=== PATIENT | female | born 1990 | race Caucasian/White ===

== ENCOUNTER 2016-08-01 05:13 | Inpatient (IN) | payer BC, MEDICAID ==
[2016-08-01] MEDS: Sodium Chloride 0.9% 10 ML Syringe FLUSH PRN ×2 (05:35→07:10)
[2016-08-01] MEDS ORDERED: Lactated Ringers 1,000 ML IV ONE (06:00)
[2016-08-01] MEDS ORDERED: Lidocaine 1% 20 ML MDV INJECT ONE (06:10)
[2016-08-01] MEDS ORDERED: Ampicillin 1 GM in Sodium Chloride 0.9% 50 ML IV ONE (06:10)
[2016-08-01] MEDS ORDERED: Oxytocin 10 Units/1 ML SDV IV ONE (06:24)
[2016-08-01] MEDS ORDERED: Ibuprofen 600 MG Tab PO PRN (07:38)
--- NOTE | 2016-08-01 09:11 | DEL ---
DATE OF DELIVERY: 08/01/2016 ATTENDING PHYSICIAN: Garcia Paredes MD ADMISSION AND DELIVERY NOTE. HISTORY: This 26-year-old, 3, para 2 female was admitted with contractions that began at approximately 2100 hours last night. She had been having them throughout the night, becoming progressively more intense and frequent. When she arrived, she was found to be completely dilated and requesting to push. Her apparently had been totally uncomplicated without proteinuria, glucosuria, or hypertension. Her blood type was O positive. Mary negative, but her group B strep screen was positive. No other abnormalities were noted. PAST MEDICAL HISTORY: Unremarkable, except for 2 previous vaginal deliveries. DELIVERY SUMMARY: When I arrived, she was panting and requesting to push, quite uncomfortable. Her vitals were within normal limits. Her chest was clear. The cardiovascular exam was unremarkable. The abdomen was gravid. Pelvic exam did in fact, revealed a bulging bag of paul and vertex presentation. She was at approximately minus 2 station. Extremities were without clubbing or edema. Saline lock had been established, and I requested a gram of Ancef be given IV push, as IV fluids were initiated at 100 mL per hour. The table was broken and set up and after the ampicillin was in, amniotomy was accomplished with clear fluid. She began pushing and after approximately 15-20 minutes of pushing, brought the baby down in VIDAL position to the perineum. The baby then rotated to an OA position, and I anesthetized the perineal body with approximately 4 mL of 1% Xylocaine. Episiotomy was not done, however. With the next push under good control, the infant's head was delivered without difficulties. The nasopharynx was suctioned free of amniotic fluid and blood. There was no nuchal cord. The baby rotated to LOT presentation. The right anterior, followed by the left posterior shoulder were delivered without difficulty as was the remainder of the infant. The nasopharynx was again suctioned free of amniotic fluid and blood. The cord was doubly clamped, and dad was allowed to cut the cord between clamps. The baby was then handed off mom's abdomen with the nurse in attendance. scores were 9 and 9. weight was 6 pounds 15 ounces, and it was a female . Attention was returned to the mother. Cord blood was obtained, and with approximately 3 to 4 minutes of uterine massage, the placenta delivered in a Schultze presentation. It appeared to be intact with vessels present x3 in the cord. Uterine massage was initiated, and bleeding was well controlled. 10 units of Pitocin was placed in the IV bag and was run at 999 mL/h. This gave us excellent hemostasis. Inspection of the perineal body revealed just a superficial abrasion in the midline, more so on the vaginal side, but it was not actively bleeding. She also has 2 other superficial abrasions in the labia minora, one on the right and one on the left. Again, no active bleeding was noted. There are no vaginal lacerations and no cervical lacerations. All drapes were removed. The perineum was washed with Betadine, and the bed pads were replaced. She was taken out of stirrups and allowed to rest. Estimated blood loss was approximately 200 mL. All instruments and sponges were accounted for. No needles were used other than for the anesthesia, and this was accounted for. She remained in the birthing room in good condition with stable vitals. /[id number] /CONRAD LEMONS
--- NOTE | 2016-08-02 08:16 | DISCH ---
DISCHARGE DATE: 08/02/2016 HISTORY: Sonia eMier is a 26-year-old 3, para 3 female, 1 day . Up, ambulating, doing well. Lochia and flow are moderated. Anxious to be going home. Hemoglobin 13.2, hematocrit 39.4. PHYSICAL EXAMINATION: U-2 tone satisfactory, perineum intact. ASSESSMENT: day 2. No problems. Ready for discharge. PLAN: Discharge home with lengthy instructions, including maternal and baby care, complementary care, and well being, six-week followup. /[id number] RAFIQ/CONRAD
[2016-08-02 09:20] VITALS: BP 139/80
== END 2016-08-02 08:58 | disposition home or self-care (01) | DRG 775 ==
LOC: FB.OBCHECK 05:13 → FB.OB 05:14 → UNDOADMIN 05:14 → FB.OB 05:15 → UNDOADMIN 05:34 → FB.OB 05:34 → UNDODISIN 08-02 08:58
PROVIDERS: ADMIT Family Medicine; ATTEND Family Medicine
PROC: 10E0XZZ Delivery of Products of Conception, External Approach (ICD-10-PCS; principal; 2016-08-01)
PROC: 10907ZC Drainage of Amniotic Fluid, Therapeutic from Products of Conception, Via Natural or Artificial Opening (ICD-10-PCS; 2016-08-01)
DX: O99.824 Streptococcus B carrier state complicating childbirth (principal); Z3A.39 39 weeks gestation of pregnancy; Z37.0 Single live birth
CPT/HCPCS: 36415; 85014; 85018; A4217; A9270-GY; J0290; J2590; J7050; J7120

== ENCOUNTER 2016-09-09 10:45 | Emergency (ER) | payer BC, MEDICAID ==
[2016-09-09] MEDS ORDERED: Sodium Chloride 0.9% 1,000 ML IV ONE (11:51)
--- NOTE | 2016-09-09 13:33 | CR ---
INDICATION: End inspiration pleuritic pain, right anterior chest. 5 weeks . CHEST: PA and lateral views of the chest were obtained 09/09/2016 and were compared with 12/17/2008. A minimal dextroconcave scoliosis of the lower thoracic spine is noted. Heart, mediastinum, and bony thorax were otherwise unremarkable. No consolidating pneumonia or effusion could be identified. Slightly prominent markings at the lung bases are unchanged from the previous study. IMPRESSION: No significant active disease - minimal scoliosis. MTDD
--- NOTE | 2016-09-09 13:55 | US ---
INDICATION: Right upper quadrant pain, 6 weeks. RIGHT UPPER QUADRANT/GALLBLADDER ULTRASOUND: Multiple ultrasonic images were obtained, revealing absence of the gallbladder, compatible with history of its removal. The common bile duct was normal in caliber for post cholecystectomy patient at 8.4 mm. The abdominal aorta was normal in caliber. The liver had a normal appearance, as did the right kidney. The IVC was phasic. The pancreas was unremarkable. The spleen and left kidney had a normal appearance additionally. The spleen measured 12.6 x 6.2 x 9 cm. The right kidney measured 10.2 x 5.2 x 4.8 cm. The left kidney measured 11.0 x 4.1 x 5.1 cm. IMPRESSION: Normal appearing abdomen ultrasound, post cholecystectomy. No finding identified to suggest an etiology for right upper quadrant abdominal pain. Report was called to Dr. Baker at 1324 hours, 09/09/2016. CRISTO
[2016-09-09] MEDS ORDERED: Iopamidol 755 Mg/ML 75 ML Bottle IV ONE (14:38)
[2016-09-09 15:36] VITALS: BP 111/60
--- NOTE | 2016-09-12 16:30 | ER ---
DATE SEEN: 09/09/2016 TIME SEEN: The patient was seen at 1113 hours. CHIEF COMPLAINT: Abdominal pain. HISTORY OF PRESENT ILLNESS: This 26-year-old, 3, para 3 woman who is 5 weeks and is breast-feeding currently, presents with onset of right upper quadrant abdominal discomfort, 8/10 in intensity, onset midnight 0005 hours today, 09/09/2016. She has had mild dyspnea on exertion, right chest soreness, and inspiratory chest wall pain. Smokes half a pack per day. Smoking less now as she is breast-feeding. She had stopped during the and now restarted smoking. Status post previous cholecystectomy. Last night at 2230 hours, she had pizza-did not particularly feel like she had increased abdominal discomfort- and two swallows of water. She notes when she is lying down, the pain is less; when she sits up or lies on her stomach, she has more pain. She denies vomiting, diarrhea, or constipation, but has had mild nausea associated with this pain. Denies back pain, arm pain, jaw pain, neck pain. No diaphoresis. No heart pain or palpitations, but she has right-sided chest discomfort. She denies recent fever, chills, or pain in her legs. She has not traveled long distance. No history of DVTs or PE. ALLERGIES: Sulfa and Ritalin. CURRENT MEDICATION: vitamins. REVIEW OF SYSTEMS: Negative except as noted in the HPI. She denies excessive lochia, but still has mild blood in her urine and lochia. She denies foul odor or abdominal cramping. Denies pedal edema in her lower extremities or change in muscle strength, weakness, or arthritis. No fever or chills. PHYSICAL EXAMINATION: VITAL SIGNS: Heart rate 78 and regular, respirations 17, oxygen saturation 98%, blood pressure 131/83, temperature 36.7 degrees centigrade. GENERAL: The patient is in mild discomfort. She looks tired. She has slight flush in her face. PERRLA intact. Pharynx without abnormality. NECK: Supple. No thyromegaly or masses in neck. LUNGS: Clear to auscultation without rales, rhonchi, or wheezes. HEART: S1, S2. No irregular rate and rhythm. Chest wall has mild tenderness at ribs 9, 10, 11; anterior axillary line; mid clavicular line; and mild sternal chondral discomfort. ABDOMEN: Mild right upper quadrant abdominal discomfort. No masses palpable. No Rovsing sign. No guarding in right lower quadrant. No rebound. No heel jar rebound. PELVIC: Not performed. LABORATORY FINDINGS: White count 7200, PMNs 71, lymphs 19, monos 7, eosinophils 3, platelets 220,000 and hemoglobin 12.7. Automated chemistry, low potassium at 3.2, sodium 139, chloride 109, bicarb 23, BUN 4, creatinine 0.6. BUN and creatinine ratio of 6.7. Lactic acid 0.6, calcium 8.3. Urinalysis, large LEs, greater than 100 wbc's, greater than 5-10 rbc's, many bacteria, and Trichomonas noted. Because of the patient's right upper quadrant abdominal discomfort, an ultrasound was performed. No evidence for gallbladder or hepatic ducts abnormality noted. Because she had elevated D-dimer of 1620 (four times normal), I discussed her status with OB, Dr. Camara at [facility] and she said it is definitely abnormal, D-dimer should be down by this time. She did not think the D-dimer elevation was secondary to breast-feeding. Consequently, a PE run was performed and no PE demonstrated. ASSESSMENT: The patient's pain is secondary to musculoskeletal chest wall pain. (I learned later in the visit that she just started work 1 to 2 days ago and she has worked 2 to 3 days in a row. 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 The right chest pain which also radiates to right upper quadrant, is accompanied by symptoms of right chest musculoskeletal strain and mild costochondritis, subchondritis, and mild sternal chondritis from cluneal nerve irritation . The patient is right-handed, so it may have increased her right chest wall stresses. PLAN: Use Tylenol or ibuprofen. The patient is to follow up with her doctor as needed. The patient is reassured. No evidence for pulmonary embolus, other serious illness, pneumonia, infectious process, atelectasis, pleuritis, or pulmonary embolus. /[id number] NAT/CONRAD LEMONS
--- NOTE | 2016-09-12 16:40 | ER ---
DATE SEEN: 09/09/2016 The patient has Trichomonas vaginalis. An attempt was made to call the patient. The patient's contract for minutes is used up. Consequently, I had spoken to her mother. Mother communicated to her that prescription has been phoned in and could be picked up in the a.m. If Sonia has any questions, she should call me in the morning. Mother will be seeing Sonia in the morning Flagyl 250 mg t.i.d. for 7 days per up-to-date recommendation. The patient is breast-feeding. The child will receive some of the Flagyl, but Flagyl does not cause complications or a RID (relative dose) over 10% at this dose. DIAGNOSIS: Trichomonas vaginitis. /[id number] NAT/CONRAD LEMONS
== END 2016-09-09 16:05 | disposition home or self-care (01) ==
LOC: FB.ED 10:45
DX: O90.89 Other complications of the puerperium, not elsewhere classified (principal); R10.11 Right upper quadrant pain; R07.89 Other chest pain; A59.01 Trichomonal vulvovaginitis; Z90.49 Acquired absence of other specified parts of digestive tract; Z88.2 Allergy status to sulfonamides; Z88.8 Allergy status to other drugs, medicaments and biological substances
CPT/HCPCS: 36415; 71020; 71275; 76700; 80053; 81001; 81025; 83605; 85025; 85379; 87086; 96365; 99284; J7040; Q9967

== ENCOUNTER 2020-11-04 15:33 | Emergency (ER) | payer MEDICAID ==
[2020-11-04] MEDS ORDERED: Sodium Chloride 0.9% 10 ML Syringe FLUSH PRN (15:37)
[2020-11-04] MEDS ORDERED: Acetaminophen/HYDROcodone 325-5 MG Tab PO STA (15:47)
[2020-11-04] MEDS ORDERED: Sodium Chloride 0.9% 1,000 ML IV SCH (16:00)
[2020-11-04] MEDS ORDERED: Cephalexin 500 MG Cap PO STA (17:35)
[2020-11-04] MEDS ORDERED: Potassium Chloride 20 MEQ Tab.ER PO STA (17:35)
--- NOTE | 2020-11-04 17:52 | EDM.PDOC ---
ED HPI GENERAL MEDICAL PROBLEM - General Stated Complaint: LEFT ABDOMINAL PAIN 20 WEEKS PREG Time Seen by Provider: 11/04/20 15:35 Source of Information: Reports: Patient History Limitations: Reports: No Limitations - History of Present Illness INITIAL COMMENTS - FREE TEXT/NARRATIVE: Patient is a 30 YO at approximately 19-20 weeks AOG presented to the ED because of on and off diarrhea for 2 weeks and LLQ pain which started yeterday. She took Tylenol without any relief. There is no fever, chills, nausea, vomiting. 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: Psychiatric History: Reports: Anxiety, Depression - Infectious Disease History Infectious Disease History: Reports: Chicken Pox - Past Surgical History HEENT Surgical History: Reports: Tonsillectomy GI Surgical History: Reports: Cholecystectomy Social & Family History - Family History Family Medical History: No Pertinent Family History - Caffeine Use Caffeine Use: Reports: Soda Other Caffeine Use: 3 CANS/DAY Caffeine Use Comment: 3 cans per day ED ROS GENERAL - Review of Systems Review Of Systems: See Below Constitutional: Reports: No Symptoms HEENT: Reports: No Symptoms Respiratory: Reports: No Symptoms Cardiovascular: Reports: No Symptoms Endocrine: Reports: No Symptoms GI/Abdominal: Reports: Abdominal Pain, Diarrhea : Reports: No Symptoms Musculoskeletal: Reports: No Symptoms Skin: Reports: No Symptoms Neurological: Reports: No Symptoms Psychiatric: Reports: No Symptoms ED EXAM, GI/ABD - Physical Exam Exam: See Below Exam Limited By: No Limitations General Appearance: Alert, No Apparent Distress Ears: Normal External Exam, Normal Canal Nose: Normal Inspection, Normal Mucosa, No Blood Throat/Mouth: Normal Inspection, Normal Lips, Normal Teeth, Normal Gums Head: Atraumatic, Normocephalic Neck: Normal Inspection, Supple, Non-Tender, Full Range of Motion Respiratory/Chest: No Respiratory Distress, Lungs Clear, Normal Breath Sounds, No Accessory Muscle Use, Chest Non-Tender Cardiovascular: Normal Peripheral Pulses, Regular Rate, Rhythm, No Edema, No Gallop, No JVD, No Murmur, No Rub GI/Abdominal Exam: Normal Bowel Sounds, Soft, Other (hyperactive BS, LLQ tenderness) Back Exam: Normal Inspection, Full Range of Motion Extremities: Normal Inspection, Normal Range of Motion, Non-Tender Neurological: Alert, Oriented, CN II-XII Intact, Normal Cognition Course - Vital Signs Text/Narrative:: Lab result was reviewed and discussed with patient and her spouse NS 1 L bolus Rincon 5 mg PO x1 Klor con 40 meq PO x1 Case was discussed with her OB DR Islas who agreed with the plan to d/c her home with keflex, oral hydration and imodium PRN. Last Recorded V/S: Last Vital Signs Temp 36.4 C 11/04/20 15:33 Pulse 68 11/04/20 15:33 Resp 18 11/04/20 15:33 BP 122/66 11/04/20 15:33 Pulse Ox - Orders/Labs/Meds Orders: Active Orders 24 hr Category Date Time Status CULTURE URINE [RM] Stat Lab 11/04/20 17:34 Ordered Sodium Chloride 0.9% [Normal Saline] 1,000 ml Med 11/04/20 16:00 Active IV ASDIRECTED Sodium Chloride 0.9% [Saline Flush] Med 11/04/20 15:37 Active 10 ml FLUSH ASDIRECTED PRN Saline Lock Insert [OM.PC] Routine Oth 11/04/20 15:37 Ordered Medication Orders Sodium Chloride (Normal Saline) 1,000 mls @ 999 mls/hr IV ASDIRECTED WILSON Last Admin: 11/04/20 16:15 Dose: 999 mls/hr Documented by: MATIMAR Sodium Chloride (Sodium Chloride 0.9% 10 Ml Syringe) 10 ml FLUSH ASDIRECTED PRN PRN Reason: Keep Vein Open Labs: Laboratory Tests 11/04/20 11/04/20 11/04/20 Range/Units 16:00 16:00 16:00 WBC 7.0 (3.0-10.3) x10-3/uL RBC 4.57 (3.60-5.20) x10(6)uL Hgb 13.7 (11.4-15.5) g/dL Hct 39.9 (34.2-48.2) % MCV 87.3 (76.7-100.5) fL MCH 30.0 (23.9-33.9) pg MCHC 34.4 (31.9-34.8) g/dL RDW 13.3 (12.3-16.5) % Plt Count 208 (151-488) x10(3)uL MPV 8.0 (7.1-12.4) fL Neut % (Auto) 71.8 (30.8-76.2) % Lymph % (Auto) 20.1 (18.4-52.1) % [place] % (Auto) 4.7 (4.4-15.7) % Eos % (Auto) 2.7 (0.6-8.1) % Baso % (Auto) 0.7 (0.2-1.5) % Neut # (Auto) 5.0 (1.5-6.3) x10-3/uL Lymph # (Auto) 1.4 (1.0-4.4) x10-3/uL [place] # (Auto) 0.3 (0.3-1.0) x10-3/uL Eos # (Auto) 0.2 (0.0-0.8) x10-3/uL Baso # (Auto) 0.0 (0.0-0.1) x10-3/uL Sodium 138 (135-145) mmol/L Potassium 3.3 L (3.5-5.3) mmol/L Chloride 104 (100-110) mmol/L Carbon Dioxide 23 (21-32) mmol/L BUN 6 L (7-18) mg/dL Creatinine 0.7 (0.55-1.02) mg/dL Est Cr Clr Drug Dosing TNP Estimated GFR (MDRD) > 60 (>60) BUN/Creatinine Ratio 8.6 L (9-20) Glucose 104 (80-116) mg/dL Calcium 8.4 L (8.6-10.2) mg/dL Total Bilirubin 0.3 (0.1-1.3) mg/dL AST 30 H (5-25) IU/L ALT 44 H (12-36) U/L Alkaline Phosphatase 66 (56-112) IU/L Total Protein 7.2 (6.0-8.0) g/dL Albumin 2.8 L (3.5-5.2) g/dL Globulin 4.4 g/dL Albumin/Globulin Ratio 0.6 Amylase 43 (25-115) U/L Lipase 65 L (73-393) U/L Urine Color (YELLOW) Urine Appearance (CLEAR) Urine pH (5.0-6.5) Ur Specific Bison (1.010-1.025) Urine Protein (NEGATIVE) mg/dL Urine Glucose (UA) (NORMAL) mg/dL Urine Ketones (NEGATIVE) mg/dL Urine Occult Blood (NEGATIVE) Urine Nitrite (NEGATIVE) Urine Bilirubin (NEGATIVE) Urine Urobilinogen (NEGATIVE) mg/dL Ur Leukocyte Esterase (NEGATIVE) Urine RBC (0-5) Urine WBC (0-5) Ur Squamous Epith Cells (NS,R,O) Urine Bacteria (NS) 11/04/20 Range/Units 16:49 WBC (3.0-10.3) x10-3/uL RBC (3.60-5.20) x10(6)uL Hgb (11.4-15.5) g/dL Hct (34.2-48.2) % MCV (76.7-100.5) fL MCH (23.9-33.9) pg MCHC (31.9-34.8) g/dL RDW (12.3-16.5) % Plt Count (151-488) x10(3)uL MPV (7.1-12.4) fL Neut % (Auto) (30.8-76.2) % Lymph % (Auto) (18.4-52.1) % [place] % (Auto) (4.4-15.7) % Eos % (Auto) (0.6-8.1) % Baso % (Auto) (0.2-1.5) % Neut # (Auto) (1.5-6.3) x10-3/uL Lymph # (Auto) (1.0-4.4) x10-3/uL [place] # (Auto) (0.3-1.0) x10-3/uL Eos # (Auto) (0.0-0.8) x10-3/uL Baso # (Auto) (0.0-0.1) x10-3/uL Sodium (135-145) mmol/L Potassium (3.5-5.3) mmol/L Chloride (100-110) mmol/L Carbon Dioxide (21-32) mmol/L BUN (7-18) mg/dL Creatinine (0.55-1.02) mg/dL Est Cr Clr Drug Dosing Estimated GFR (MDRD) (>60) BUN/Creatinine Ratio (9-20) Glucose (80-116) mg/dL Calcium (8.6-10.2) mg/dL Total Bilirubin (0.1-1.3) mg/dL AST (5-25) IU/L ALT (12-36) U/L Alkaline Phosphatase (56-112) IU/L Total Protein (6.0-8.0) g/dL Albumin (3.5-5.2) g/dL Globulin g/dL Albumin/Globulin Ratio Amylase (25-115) U/L Lipase (73-393) U/L Urine Color Yellow (YELLOW) Urine Appearance Cloudy (CLEAR) Urine pH 6.0 (5.0-6.5) Ur Specific Bison 1.020 (1.010-1.025) Urine Protein Negative (NEGATIVE) mg/dL Urine Glucose (UA) Normal (NORMAL) mg/dL Urine Ketones Negative (NEGATIVE) mg/dL Urine Occult Blood Moderate H (NEGATIVE) Urine Nitrite Positive H (NEGATIVE) Urine Bilirubin Negative (NEGATIVE) Urine Urobilinogen Normal (NEGATIVE) mg/dL Ur Leukocyte Esterase Negative (NEGATIVE) Urine RBC 0-5 (0-5) Urine WBC 0-5 (0-5) Ur Squamous Epith Cells Moderate H (NS,R,O) Urine Bacteria Many H (NS) Meds: Medications Generic Name Dose Route Start Last Admin Trade Name Freq PRN Reason Stop Dose Admin Sodium Chloride 1,000 mls @ 999 mls/hr 11/04/20 16:00 11/04/20 16:15 Normal Saline IV 999 mls/hr ASDIRECTED WILSON Administration Sodium Chloride 10 ml 11/04/20 15:37 Sodium Chloride 0.9% 10 Ml Syringe FLUSH ASDIRECTED PRN Keep Vein Open Discontinued Medications Generic Name Dose Route Start Last Admin Trade Name Freq PRN Reason Stop Dose Admin Hydrocodone Bitart/Acetaminophen 1 tab 11/04/20 15:47 11/04/20 16:00 Acetaminophen/Hydrocodone 325-5 Mg Tab PO 11/04/20 15:48 1 tab NOW STA Administration Cephalexin 500 mg 11/04/20 17:35 11/04/20 17:50 Cephalexin 500 Mg Cap PO 11/04/20 17:36 500 mg NOW STA Administration Potassium Chloride 40 meq 11/04/20 17:35 11/04/20 17:50 Potassium Chloride 20 Meq Tab.Er PO 11/04/20 17:36 40 meq NOW STA Administration Departure - Departure Time of Disposition: 17:50 Disposition: Home, Self-Care 01 Condition: Good Clinical Impression: Gastroenteritis, UTI (urinary tract infection) - Discharge Information Prescriptions: cephALEXin [Keflex] 500 mg PO Q8H #21 cap Instructions: Viral Gastroenteritis, Adult, [id number], and Urinary Tract Infection Referrals: Kt Islas MD [Primary Care Provider] - Additional Instructions: Please read discharge instructions on gastroenteritis and UTI Frequent hand washing Tylenol 1000 mg every 8 hours as needed for pain Imodium 2 tablets every 6 hours as needed for diarrhea(over the counter) Keflex/Cephalexin 500 mg 3 times daily for 7 days Follow up with DR Islas as needed Sepsis Event Note (ED) - Evaluation Sepsis Screening Result: No Definite Risk - Focused Exam Vital Signs: Vital Signs Temp Pulse Resp BP 11/04/20 15:33 36.4 C 68 18 122/66 - My Orders Last 24 Hours: My Active Orders 11/04/20 15:37 Sodium Chloride 0.9% [Saline Flush] 10 ml FLUSH ASDIRECTED PRN Saline Lock Insert [OM.PC] Routine 11/04/20 16:00 Sodium Chloride 0.9% [Normal Saline] 1,000 ml IV ASDIRECTED 11/04/20 17:34 CULTURE URINE [RM] Stat - Assessment/Plan Last 24 Hours: My Active Orders 11/04/20 15:37 Sodium Chloride 0.9% [Saline Flush] 10 ml FLUSH ASDIRECTED PRN Saline Lock Insert [OM.PC] Routine 11/04/20 16:00 Sodium Chloride 0.9% [Normal Saline] 1,000 ml IV ASDIRECTED 11/04/20 17:34 CULTURE URINE [RM] Stat
[2020-11-04 20:16] VITALS: BP 122/76; PULSE 65
== END 2020-11-04 18:00 | disposition home or self-care (01) ==
LOC: FB.ED 15:33
DX: O23.42 Unspecified infection of urinary tract in pregnancy, second trimester (principal); O99.612 Diseases of the digestive system complicating pregnancy, second trimester; K52.9 Noninfective gastroenteritis and colitis, unspecified; Z88.8 Allergy status to other drugs, medicaments and biological substances; Z88.2 Allergy status to sulfonamides; Z90.49 Acquired absence of other specified parts of digestive tract; Z3A.20 20 weeks gestation of pregnancy
CPT/HCPCS: 36415; 80053; 81001; 82150; 83690; 85025; 87086; 87088; 87186; 99284; A9270-GY; J7030

== ENCOUNTER 2021-05-13 07:48 | Emergency (ER) | payer MEDICAID ==
[2021-05-13] MEDS ORDERED: Ketorolac 30 MG/ML SDV IM STA (08:09)
[2021-05-13 09:09] VITALS: BP 149/101; PULSE 70
== END 2021-05-13 09:15 | disposition home or self-care (01) ==
LOC: FB.ED 07:48
DX: N39.0 Urinary tract infection, site not specified (principal); Z88.8 Allergy status to other drugs, medicaments and biological substances; Z88.2 Allergy status to sulfonamides
CPT/HCPCS: 36415; 80048; 81001; 85025; 96372; 99284; J1885

== ENCOUNTER 2024-01-22 18:10 | Emergency (ER) | payer MEDICAID ==
[2024-01-22 18:48] VITALS: BP 135/92; PULSE 65
[2024-01-22] MEDS: Ketorolac 30 MG/ML SDV IM ONE (19:19)
[2024-01-22] MEDS: Cephalexin 500 MG Cap PO ONE (19:21)
== END 2024-01-22 19:23 | disposition home or self-care (01) ==
LOC: FB.ED 18:10
DX: K04.7 Periapical abscess without sinus (principal); E66.9 Obesity, unspecified; F17.210 Nicotine dependence, cigarettes, uncomplicated; Z90.49 Acquired absence of other specified parts of digestive tract; Z79.899 Other long term (current) drug therapy; Z88.8 Allergy status to other drugs, medicaments and biological substances; Z88.2 Allergy status to sulfonamides
CPT/HCPCS: 96372; 99282; 99283; A9270-GY; J1885

== ENCOUNTER 2024-01-24 22:09 | Emergency (ER) | payer MEDICAID ==
[2024-01-24 22:20] VITALS: BP 151/86; PULSE 89
[2024-01-24] MEDS: Ondansetron 4 MG Tab.DIS PO ONE (22:36)
[2024-01-24] MEDS: Ondansetron 4 MG/2 ML SDV IM ONE (22:43)
== END 2024-01-24 23:17 | disposition home or self-care (01) ==
LOC: FB.ED 22:09
DX: E86.0 Dehydration (principal); K04.7 Periapical abscess without sinus; E66.9 Obesity, unspecified; Z79.899 Other long term (current) drug therapy; Z88.2 Allergy status to sulfonamides; Z88.8 Allergy status to other drugs, medicaments and biological substances
CPT/HCPCS: 96372; 99283; J2405; Q0162

== ENCOUNTER 2025-02-14 19:18 | Emergency (ER) | payer MEDICAID ==
[2025-02-14 20:25] LABS: GLUCOSE,URINE NORMAL (NORMAL); OCCULT BLOOD,URINE NEGATIVE (NEGATIVE)
[2025-02-14 20:32] LABS: APPEARANCE,URINE CLEAR (CLEAR)
[2025-02-14 21:46] VITALS: BP 123/76; PULSE 64
== END 2025-02-14 21:44 | disposition home or self-care (01) ==
LOC: FB.ED 19:18
DX: O20.9 Hemorrhage in early pregnancy, unspecified (principal); O99.331 Smoking (tobacco) complicating pregnancy, first trimester; F17.200 Nicotine dependence, unspecified, uncomplicated; Z88.2 Allergy status to sulfonamides; Z88.8 Allergy status to other drugs, medicaments and biological substances; Z79.899 Other long term (current) drug therapy; Z90.49 Acquired absence of other specified parts of digestive tract; Z3A.01 Less than 8 weeks gestation of pregnancy
CPT/HCPCS: 36415; 81003; 81025; 84702; 99284